=== PATIENT | female | born 1955 | race Hispanic/Latino ===

== ENCOUNTER 2018-06-20 09:21 | Inpatient (IN) | payer SELFPAY ==
[2018-06-20] MEDS ORDERED: ASPIRIN PO ONE (09:41)
--- NOTE | 2018-06-20 10:05 | Emergency Department Report ---
ED Chest Pain HPI - General Chief Complaint: Chest Pain Stated Complaint: CHEST PAIN Time Seen by Provider: 06/20/18 09:45 Source: patient, EMS Mode of arrival: Stretcher Limitations: No Limitations - History of Present Illness Initial Comments: 62-year-old female with multiple cardiac risk factors and intermittent chest pain for one week (I suspect it's even longer). She states that the chest pain occurs at night and with exertion and when she breathes in cold air. She called EMS and was found to be quite hypertensive. She received 3 nitroglycerin and chest pain resolved. She states she had a stress test in 1985 but no cardiac workup since. She has a brother who is status post CABG. She has hypertension and hyperlipidemia but she is not diabetic. MD Complaint: chest pain -: week(s) Onset: during rest, during exertion Pain Location: substernal Pain Radiation: LUE Severity: moderate, severe Severity scale (0 -10): 0 Quality: sharp (stated both pressure and sharp), pressure Consistency: now resolved Improves With: nitroglycerin Worsens With: nothing Other Symptoms: denies: cough, fever, syncope Treatments Prior to Arrival: nitroglycerin - Related Data Allergies Allergy/AdvReac Type Severity Reaction Status Date / Time No Known Allergies Allergy Verified 06/20/18 09:52 Heart Score - HEART Score History: Highly suspicious EKG: Non-specific Age: 45-65 Risk factors: > 3 risk factors or hx of atherosclerotic disease Troponin: 1-3x normal limit HEART Score: 7 - Critical Actions Critical Actions: >7 pts:50-65% risk of adverse cardiac event. Early invasive measures ED Review of Systems ROS: Stated complaint: CHEST PAIN Other details as noted in HPI Constitutional: denies: chills, fever Eyes: denies: eye pain, eye discharge, vision change ENT: denies: ear pain, throat pain Respiratory: denies: cough, shortness of breath, wheezing Cardiovascular: as per HPI, chest pain. denies: palpitations Endocrine: no symptoms reported Gastrointestinal: denies: abdominal pain, diarrhea Genitourinary: denies: urgency, dysuria, discharge Musculoskeletal: denies: back pain, joint swelling, arthralgia Skin: denies: rash, lesions Neurological: denies: headache, weakness, paresthesias Psychiatric: denies: anxiety, depression Hematological/Lymphatic: denies: easy bleeding, easy bruising ED Past Medical Hx - Past Medical History Hx Hypertension: Yes Additional medical history: hyperlipidemia - Social History Smoking Status: Former Smoker ED Physical Exam - General Limitations: No Limitations General appearance: alert, in no apparent distress - Head Head exam: Present: atraumatic, normocephalic - Eye Eye exam: Present: normal appearance. Absent: scleral icterus - ENT ENT exam: Present: mucous membranes moist - Neck Neck exam: Present: normal inspection. Absent: tenderness, meningismus - Respiratory Respiratory exam: Present: normal lung sounds bilaterally. Absent: respiratory distress - Cardiovascular Cardiovascular Exam: Present: regular rate, normal rhythm. Absent: systolic murmur, diastolic murmur, rubs, gallop - GI/Abdominal GI/Abdominal exam: Present: soft, normal bowel sounds. Absent: distended, tenderness, guarding, rebound, rigid - Extremities Exam Extremities exam: Present: normal inspection - Back Exam Back exam: Present: normal inspection - Neurological Exam Neurological exam: Present: alert, oriented X3, CN II-XII intact. Absent: motor sensory deficit - Psychiatric Psychiatric exam: Present: normal affect, normal mood - Skin Skin exam: Present: warm, dry, intact, normal color. Absent: rash ED Course Vital Signs 06/20/18 06/20/18 06/20/18 09:35 09:53 09:54 Temperature 98.2 F Pulse Rate 94 H Respiratory 22 13 13 Rate Blood Pressure 143/86 [Left] O2 Sat by Pulse 98 100 99 Oximetry AMILCAR score - Amilcar Score Age > 65: (0) No Aspirin use within the Past 7 Days: (0) No 3 or more CAD Risk Factors: (1) Yes 2 or more Angina events in past 24 hrs: (1) Yes Known CAD with more than 50% Stenosis: (0) No Elevated Cardiac Markers: (1) Yes ST Deviation Greater than 0.5mm: (0) No AMILCAR Score: 3 ED Medical Decision Making - Lab Data Result diagrams: 06/20/18 09:52 06/20/18 09:52 Laboratory Results - last 24 hr 06/20/18 06/20/18 06/20/18 09:52 09:52 09:52 WBC 10.2 RBC 4.48 Hgb 13.9 Hct 40.1 MCV 90 MCH 31 MCHC 35 H RDW 13.4 Plt Count 344 Lymph % (Auto) 20.2 [place] % (Auto) 5.3 Eos % (Auto) 1.3 Baso % (Auto) 0.4 Lymph # 2.1 [place] # 0.5 Eos # 0.1 Baso # 0.0 Seg Neutrophils % 72.8 H Seg Neutrophils # 7.4 PT 14.2 INR 1.04 APTT 26.2 D-Dimer 162.00 Sodium 140 Potassium 3.9 Chloride 105.8 Carbon Dioxide 22 Anion Gap 16 BUN 20 H Creatinine 0.5 L Estimated GFR > 60 BUN/Creatinine Ratio 40 Glucose 129 H Calcium 9.4 Magnesium Total Bilirubin Direct Bilirubin Indirect Bilirubin AST ALT Alkaline Phosphatase Troponin T 0.074 H NT-Pro-B Natriuret Pep Total Protein Albumin Albumin/Globulin Ratio Triglycerides 105 Cholesterol 224 H LDL Cholesterol Direct 158 H HDL Cholesterol 62 H Cholesterol/HDL Ratio 3.61 Urine Color Urine Turbidity Urine pH Ur Specific Velpen Urine Protein Urine Glucose (UA) Urine Ketones Urine Blood Urine Nitrite Urine Bilirubin Urine Urobilinogen Ur Leukocyte Esterase Urine WBC (Auto) Urine RBC (Auto) U Epithel Cells (Auto) Urine Bacteria (Auto) Hyaline Casts Urine Mucus 06/20/18 06/20/18 09:52 Unknown WBC RBC Hgb Hct MCV MCH MCHC RDW Plt Count Lymph % (Auto) [place] % (Auto) Eos % (Auto) Baso % (Auto) Lymph # [place] # Eos # Baso # Seg Neutrophils % Seg Neutrophils # PT INR APTT D-Dimer Sodium Potassium Chloride Carbon Dioxide Anion Gap BUN Creatinine Estimated GFR BUN/Creatinine Ratio Glucose Calcium Magnesium 1.90 Total Bilirubin 0.30 Direct Bilirubin < 0.2 Indirect Bilirubin 0.1 AST 21 ALT 28 Alkaline Phosphatase 108 Troponin T NT-Pro-B Natriuret Pep 279.6 Total Protein 6.7 Albumin 4.1 Albumin/Globulin Ratio 1.6 Triglycerides Cholesterol LDL Cholesterol Direct HDL Cholesterol Cholesterol/HDL Ratio Urine Color Yellow Urine Turbidity Clear Urine pH 6.0 Ur Specific [place] 1.012 Urine Protein 30 mg/dl Urine Glucose (UA) Neg Urine Ketones Neg Urine Blood Sm Urine Nitrite Neg Urine Bilirubin Neg Urine Urobilinogen < 2.0 Ur Leukocyte Esterase Sm Urine WBC (Auto) 3.0 Urine RBC (Auto) 4.0 U Epithel Cells (Auto) 6.0 Urine Bacteria (Auto) 1+ Hyaline Casts 6 Urine Mucus Few - EKG Data -: EKG Interpreted by Ms EKG shows normal: sinus rhythm, axis, intervals, QRS complexes, ST-T waves Rate: normal - EKG Data Interpretation: no acute changes - Radiology Data Radiology results: report reviewed - Medical Decision Making Patient has symptoms consistent with an acute coronary syndrome. She has slightly elevated troponin. Serial troponins and EKG. We'll discuss ant icoagulation with Dr. Stacy. Patient is admitted to the hospitalist service. Patient is stable consultation with cardiology will be pending. Critical care attestation.: If time is entered above; I have spent that time in minutes in the direct care of this critically ill patient, excluding procedure time. ED Disposition Clinical Impression: Acute coronary syndrome Disposition: DC-09 OP ADMIT IP TO THIS HOSP Is pt being admited?: Yes Does the pt Need Aspirin: Yes Condition: Stable Referrals: BRITTNEY PADILLA MD [Primary Care Provider] - 3-5 Days Time of Disposition: 11:44
[2018-06-20 10:11] LABS: Basophils % (Auto) 0.4 % (0.0-1.8); Eosinophils # (Auto) 0.1 K/mm3 (0.0-0.4); Eosinophils % (Auto) 1.3 % (0.0-4.3); Hematocrit 40.1 % (30.3-42.9); Hemoglobin 13.9 gm/dl (10.1-14.3); Lymphocytes # (Auto) 2.1 K/mm3 (1.2-5.4); Lymphocytes % (Auto) 20.2 % (13.4-35.0); Mean Corpuscular HGB Conc 35 % (30-34); Mean Corpuscular Volume 90 fl (79-97); Monocytes # (Auto) 0.5 K/mm3 (0.0-0.8); Monocytes % (Auto) 5.3 % (0.0-7.3); Platelet Count 344 K/mm3 (140-440); Red Blood Count 4.48 M/mm3 (3.65-5.03); Red Cell Distribution Width 13.4 % (13.2-15.2)
--- NOTE | 2018-06-20 10:15 | XRay Report ---
AP CHEST: HISTORY: chest pain AP view of the chest demonstrates a normal mediastinal and cardiac contour with clear lungs and normal bony and soft tissue structures. IMPRESSION: No acute cardiopulmonary process.
[2018-06-20 10:25] LABS: BUN/Creatinine Ratio 40; Blood Urea Nitrogen 20 mg/dL (7-17); Calcium 9.4 mg/dL (8.4-10.2); Hemolysis Index 23
[2018-06-20 10:29] LABS: Alanine Aminotransferase 28 units/L (7-56); Albumin 4.1 g/dL (3.9-5); INR 1.04 (0.87-1.13); Partial Thromboplastin Time 26.2 Sec. (24.2-36.6)
[2018-06-20 10:30] LABS: Bilirubin,Direct < 0.2 mg/dL (0-0.2)
[2018-06-20 10:44] LABS: Chol/HDL Ratio 3.61 %; HDL Cholesterol 62 mg/dL (40-59); LDL Cholesterol,Direct 158 mg/dL (50-130)
[2018-06-20 11:05] LABS: Bacteria,Urine 1+ /HPF (Negative); Bilirubin,Urine NEG (Negative); Blood,Urine SM (Negative); Color,Urine Yellow (Yellow); Hyaline Casts,Urine 6 /LPF; Mucus,Urine FEW /HPF; Urobilinogen,Urine < 2.0 mg/dL (<2.0)
[2018-06-20] MEDS ORDERED: NITRO-BID 2% TP ONE (11:45)
[2018-06-20] MEDS ORDERED: NITROSTAT SL ONE (11:52)
[2018-06-20] MEDS ORDERED: NITROSTAT SL PRN (11:55)
--- NOTE | 2018-06-20 12:07 | History and Physical Report ---
History of Present Illness Chief complaint: My chest hurts History of present illness: 62 YO Female with HTN, HLD presents to ED for evaluation. Pt states that she has experienced pain in her chest over the past 1 week. Pt states that he pain is intermittent and usually lasts for several minutes then resolves. Pt states that her pain has worsened and awoke her from sleep overnight. Pt states that pain is 10/10, substernal, radiates to her Left neck and arm, worsened with exertion, not relieved with rest. Pt acknowledges decreased exercise tolerance, Orthopnea/PND, lower extremity edema, as well as shortness of breath. EMS notified and upon arrival the patient was found to have Angina and a code STEMI was called. Pt transported to [facility] for further care. Pt seen and evaluated in ED and found to have NSTEMI/ACS. Pt initiated on heparin drip. Cardiology consulted in ED. Pt admitted to telemetry. Pt denies fever, chills, Palpitations, NVD, Trauma, BRBPR, Skin Rash, Productive Cough, or recent ill contacts. No previous inpatient admission. All listed medication reconciled at time of admission. Past History Past Medical History: hypertension, hyperlipidemia Past Surgical History: No surgical history Social history: , lives with family. denies: smoking, alcohol abuse, prescription drug abuse Family history: hypertension Medications and Allergies Allergies Allergy/AdvReac Type Severity Reaction Status Date / Time No Known Allergies Allergy Verified 06/20/18 09:52 Home Medications Medication Instructions Recorded Confirmed Last Taken Type Aspirin [Adult Aspirin] 81 mg PO QDAY 06/20/18 06/20/18 Unknown History Lansoprazole [Heartburn Treatment 15 mg PO QDAY 06/20/18 06/20/18 Unknown Histo ry 24 Hour] Active Meds: Active Medications Nitroglycerin (Nitrostat) 0.4 mg SL .Q5MIN PRN PRN Reason: Chest Pain Last Admin: 06/20/18 11:56 Dose: 0.4 mg Documented by: Review of Systems Constitutional: no weight loss, no weight gain, no fever, no chills Ears, nose, mouth and throat: no ear pain, no ear discharge, no tinnitis, no decreased hearing, no nose pain Breasts: no change in shape Cardiovascular: chest pain, orthopnea, shortness of breath, dyspnea on exertion, paroxysmal nocturnal dyspnea, high blood pressure, decreased exercise tolerance, no palpitations, no syncope Respiratory: no cough, no cough with sputum, no excessive sputum, no hemoptysis Gastrointestinal: no nausea, no vomiting, no diarrhea, no constipation Genitourinary Female: no pelvic pain, no flank pain, no menorrhagia, no dysuria, no urinary frequency Rectal: no pain, no incontinence, no bleeding Musculoskeletal: no neck stiffness, no neck pain, no arm numbness/tingling, no low back pain, no shooting leg pain, no leg numbness/tingling Integumentary: no rash, no pruritis, no redness, no sores, no wounds Neurological: no transient paralysis, no paralysis, no weakness, no parathesias, no numbness, no tingling Psychiatric: no anxiety, no memory loss, no change in sleep habits, no sleep disturbances, no insomnia, no hypersomnia Endocrine: no cold intolerance, no heat intolerance, no polyphagia, no excessive thirst, no polydipsia Hematologic/Lymphatic: no easy bruising, no easy bleeding, no lymphadenopathy, no lymphedema Allergic/Immunologic: no urticaria, no allergic rhinitis, no wheezing, no anaphylaxis, no angioedema Exam - Constitutional Vitals: Temp Pulse Resp BP Pulse Ox 98.2 F 104 H 15 163/107 100 06/20/18 09:53 06/20/18 11:59 06/20/18 11:59 06/20/18 11:59 06/20/18 11:59 General appearance: Present: mild distress - EENT Eyes: Present: PERRL ENT: hearing intact, clear oral mucosa - Neck Neck: Present: supple, normal ROM - Respiratory Respiratory effort: normal Respiratory: bilateral: CTA - Cardiovascular Heart Sounds: Present: S1 & S2. Absent: rub, click - Extremities Extremities: pulses symmetrical, No edema Peripheral Pulses: within normal limits - Abdominal General gastrointestinal: Present: soft, non-tender, non-distended, normal bowel sounds Female genitourinary: Present: normal - Integumentary Integumentary: Present: clear, warm, dry - Musculoskeletal Musculoskeletal: gait normal, strength equal bilaterally - Psychiatric Psychiatric: appropriate mood/affect, intact judgment & insight - Neurologic Neurologic: CNII-XII intact, moves all extremities Results - Labs CBC & Chem 7: 06/20/18 09:52 06/20/18 09:52 Labs: Abnormal lab results 06/20/18 06/20/18 Range/Units 09:52 09:52 MCHC 35 H (30-34) % Seg Neutrophils % 72.8 H (40.0-70.0) % BUN 20 H (7-17) mg/dL Creatinine 0.5 L (0.7-1.2) mg/dL Glucose 129 H (65-100) mg/dL Troponin T 0.074 H (0.00-0.029) ng/mL Cholesterol 224 H (50-199) mg/dL LDL Cholesterol Direct 158 H (50-130) mg/dL HDL Cholesterol 62 H (40-59) mg/dL Assessment and Plan - Patient Problems (1) NSTEMI (non-ST elevated myocardial infarction) Current Visit: Yes Status: Acute Plan to address problem: Cardiology consulted in ED, Pt admitted to telemetry, heparin drip protocol initiated in ED, as well as heparin bolus dosing, serial cardiac enzymes, ekg, telemetry, Echo, stress test, monitor bp q shift, pain control, morphine, supplemental oxygen, nitro, aspirin, statin therpay. (2) HTN (hypertension) Current Visit: Yes Status: Acute Qualifiers: Hypertension type: essential hypertension Qualified Code(s): I10 - Essential (primary) hypertension Plan to address problem: Monitor bp q shift, Amlodipine scheduled daily, IV hydralazine prn for systolic above 160. (3) HLD (hyperlipidemia) Current Visit: Yes Status: Acute Qualifiers: Hyperlipidemia type: mixed hyperlipidemia Qualified Code(s): E78.2 - Mixed hyperlipidemia Plan to address problem: Statin therapy, low cholesterol diet, lipid panel, (4) Diastolic CHF Current Visit: Yes Status: Suspected Qualifiers: Heart failure chronicity: acute Qualified Code(s): I50.31 - Acute diastolic (congestive) heart failure Plan to address problem: Admit to telemetry, Echo, cardiology consulted in ED, strict I/O, daily weight, monitor uop q shift, daily weight, BNP, D dimer, chest x ray, pulse oximetry, afterload reduction, monitor bp q shift. Echo ordered in ED. Results pending. (5) DVT prophylaxis Current Visit: Yes Status: Acute Plan to address problem: Heparin drip, SCD to BLE while in bed.
[2018-06-20] MEDS ORDERED: BABY ASPIRIN PO STA (12:11)
[2018-06-20] MEDS ORDERED: MORPHINE IV PRN (12:11)
[2018-06-20] MEDS ORDERED: ZOFRAN IV PRN (12:11)
[2018-06-20] MEDS ORDERED: SODIUM CHLORIDE FLUSH SYRINGE 10 ML IV PRN ×2 (12:11)
[2018-06-20] MEDS ORDERED: PROVENTIL IH PRN (12:11)
[2018-06-20] MEDS ORDERED: APRESOLINE IV PRN (12:16)
[2018-06-20] MEDS ORDERED: HEPARIN 10,000 UNITS/10 ML IV ONE (13:20)
[2018-06-20] MEDS ORDERED: HEPARIN 10,000 UNITS/10 ML ONE (13:31)
[2018-06-20] MEDS: HEPARIN/ 0.45% NACL-25,000 UNIT/500 ML 25,000 UNIT/500 ML BAG IV SCH (14:09)
--- NOTE | 2018-06-20 14:18 | Consultation ---
History of Present Illness Consult date: 06/20/18 Requesting physician: DAI PENA Consult reason: chest pain, elevated troponin History of present illness: The pt is a 62-year-old female with a past medical history of HTN, HLP, former tobacco use (quit smoking 12 years ago). She is previously unknown to our practice. She presented with complaints of chest pain for the past several weeks which worsened overnight. She states that for several weeks, she has been e xperiencing intermittent substernal stabbing chest pain which is worst at rest and improved by movement. Yesterday evening around 9PM, she developed constant stabbing chest pain which persisted overnight. This morning, she developed precordial chest pressure and decided to seek medical attention. The pain does radiate into her left arm. She also admits to dyspnea on exertion for the past several weeks. She denies any palpitations, n/v, diaphoresis, dizziness or syncope. She received 3 nitroglycerin and chest pain resolved. She states she had a stress test in 1985 but no cardiac workup since. She has a brother who is status post CABG. Past History Past Medical History: hypertension, hyperlipidemia Social history: smoking (former) Family history: CAD Medications and Allergies Allergies Allergy/AdvReac Type Severity Reaction Status Date / Time No Known Allergies Allergy Verified 06/20/18 09:52 Home Medications Medication Instructions Recorded Confirmed Last Taken Type Aspirin [Adult Aspirin] 81 mg PO QDAY 06/20/18 06/20/18 Unknown History Lansoprazole [Heartburn Treatment 15 mg PO QDAY 06/20/18 06/20/18 Unknown History 24 Hour] Active Meds: Active Medications Acetaminophen (Tylenol) 650 mg PO Q4H PRN PRN Reason: Pain MILD(1-3)/Fever >100.5/ORTIZ Albuterol (Proventil) 2.5 mg IH Q4HRT PRN PRN Reason: Shortness Of Breath Amlodipine Besylate (Norvasc) 5 mg PO QDAY LUIS MANUEL Hydralazine HCl (Apresoline) 10 mg IV Q8HR PRN PRN Reason: HTN >160 Heparin Sodium/Sodium Chloride (Heparin/ 0.45% Nacl-25,000 Unit/500 Ml) 25,000 unit in 500 mls @ 18 mls/hr IV TITR LUIS MANUEL; Protocol Last Admin: 06/20/18 14:09 Dose: 900 units/hr, 18 mls/hr Documented by: Morphine Sulfate (Morphine) 2 mg IV Q4H PRN PRN Reason: Pain, Moderate (4-6) Nitroglycerin (Nitrostat) 0.4 mg SL .Q5MIN PRN PRN Reason: Chest Pain Last Admin: 06/20/18 11:56 Dose: 0.4 mg Documented by: Ondansetron HCl (Zofran) 4 mg IV Q8H PRN PRN Reason: Nausea And Vomiting Sodium Chloride (Sodium Chloride Flush Syringe 10 Ml) 10 ml IV BID LUIS MANUEL Sodium Chloride (Sodium Chloride Flush Syringe 10 Ml) 10 ml IV PRN PRN PRN Reason: LINE FLUSH Sodium Chloride (Sodium Chloride Flush Syringe 10 Ml) 10 ml IV PRN PRN PRN Reason: LINE FLUSH Review of Systems Constitutional: no weight loss, no weight gain, no fever, no chills, no sweats Ears, nose, mouth and throat: no ear pain, no nose pain, no sinus pressure, no sinus pain Cardiovascular: chest pain, shortness of breath, dyspnea on exertion, high blood pressure, no orthopnea, no palpitations, no rapid/irregular heart beat, no edema, no syncope, no lightheadedness, no paroxysmal nocturnal dyspnea, no leg edema Respiratory: shortness of breath, dyspnea on exertion, no cough, no congestion, no wheezing, no pain on inspiration Gastrointestinal: no abdominal pain, no nausea, no vomiting, no diarrhea, no constipation, no change in bowel habits Genitourinary Female: no pelvic pain, no flank pain, no dysuria, no urinary frequency, no urgency Musculoskeletal: no neck stiffness, no neck pain, no shooting arm pain, no arm numbness/tingling, no low back pain, no shooting leg pain Integumentary: no rash, no pruritis, no redness, no sores, no wounds Neurological: no head injury, no paralysis, no weakness, no parathesias, no numbness, no tingling Psychiatric: no anxiety Endocrine: no cold intolerance, no heat intolerance Hematologic/Lymphatic: no easy bruising, no easy bleeding Allergic/Immunologic: no urticaria, no wheezing Physical Examination Vital Signs Resp Pulse Ox 22 98 06/20/18 09:35 06/20/18 09:35 General appearance: no acute distress HEENT: Positive: PERRL, Normocephaly, Mucus Membranes Moist Neck: Positive: neck supple, trachea midline Cardiac: Positive: Reg Rate and Rhythm, S1/S2 Lungs: Positive: clear to auscultation Neuro: Positive: Grossly Intact Abdomen: Positive: Soft. Negative: Tender Skin: Negative: Rash, Wound Musculoskeletal: No Pain Extremities: Absent: edema Results 06/20/18 09:52 06/20/18 09:52 Cardiac Enzymes 06/20/18 Range/Units 09:52 AST 21 (5-40) units/L Coagulation 06/20/18 Range/Units 09:52 PT 14.2 (12.2-14.9) Sec. INR 1.04 (0.87-1.13) APTT 26.2 (24.2-36.6) Sec. Lipids 06/20/18 Range/Units 09:52 Triglycerides 105 (2-149) mg/dL Cholesterol 224 H (50-199) mg/dL HDL Cholesterol 62 H (40-59) mg/dL Cholesterol/HDL Ratio 3.61 % CBC 06/20/18 Range/Units 09:52 WBC 10.2 (4.5-11.0) K/mm3 RBC 4.48 (3.65-5.03) M/mm3 Hgb 13.9 (10.1-14.3) gm/dl Hct 40.1 (30.3-42.9) % Plt Count 344 (140-440) K/mm3 Lymph # 2.1 (1.2-5.4) K/mm3 [place] # 0.5 (0.0-0.8) K/mm3 Eos # 0.1 (0.0-0.4) K/mm3 Baso # 0.0 (0.0-0.1) K/mm3 Comprehensive Metabolic Panel 06/20/18 06/20/18 Range/Units 09:52 09:52 Sodium 140 (137-145) mmol/L Potassium 3.9 (3.6-5.0) mmol/L Chloride 105.8 (98-107) mmol/L Carbon Dioxide 22 (22-30) mmol/L BUN 20 H (7-17) mg/dL Creatinine 0.5 L (0.7-1.2) mg/dL Glucose 129 H (65-100) mg/dL Calcium 9.4 (8.4-10.2) mg/dL Direct Bilirubin < 0.2 (0-0.2) mg/dL Indirect Bilirubin 0.1 mg/dL AST 21 (5-40) units/L ALT 28 (7-56) units/L Alkaline Phosphatase 108 (35-129) units/L Total Protein 6.7 (6.3-8.2) g/dL Albumin 4.1 (3.9-5) g/dL - Imaging and Cardiology Echo: pending Cardiac cath: pending EKG: report reviewed, image reviewed EKG interpretations - Telemetry EKG Rhythm: Sinus Rhythm - EKG Sinus rhythms and dysrhythmias: sinus rhythm Assessment and Plan CE elevation pattern appears c/w NSTEMI type I. Chest pain currently resolved, ECG with no acute ischemic changes. Agree with heparin gtt. Initiate ASA 325, lipitor, lopressor, nitrates. Obtain echo. Trend Rosy and repeat ECG in AM. Coronary angiography recommended. Indications, potential risks and benefits of LHC reviewed with pt and she is agreeable to proceed in AM. NPO after MN. The patent has been seen in conjunction with Dr. Chand who agrees with the assessment and plan of care. - Patient Problems (1) NSTEMI (non-ST elevated myocardial infarction) Current Visit: Yes Status: Acute (2) HTN (hypertension) Current Visit: Yes Status: Chronic Qualifiers: Hypertension type: essential hypertension Qualified Code(s): I10 - Essential (primary) hypertension (3) HLD (hyperlipidemia) Current Visit: Yes Status: Chronic Qualifiers: Hyperlipidemia type: mixed hyperlipidemia Qualified Code(s): E78.2 - Mixed hyperlipidemia
[2018-06-20] MEDS ORDERED: NACL 0.9% 500 ML 500 ML IV SCH (15:00)
[2018-06-20] MEDS ORDERED: LOPRESSOR ONE (15:16)
[2018-06-20] MEDS: LOPRESSOR PO SCH ×2 (15:22→22:47)
[2018-06-20] MEDS ORDERED: PLAVIX PO ONE (16:52)
[2018-06-20] MEDS: TYLENOL PO PRN (18:04)
[2018-06-20] MEDS: NITRO-BID 2% TP SCH (18:51)
[2018-06-20] MEDS: SODIUM CHLORIDE FLUSH SYRINGE 10 ML IV SCH (22:50)
[2018-06-21 05:50] LABS: Basophils # (Auto) 0.1 K/mm3 (0.0-0.1); Basophils % (Auto) 0.5 % (0.0-1.8); Eosinophils # (Auto) 0.2 K/mm3 (0.0-0.4); Eosinophils % (Auto) 1.8 % (0.0-4.3); Hematocrit 38.8 % (30.3-42.9); Hemoglobin 13.4 gm/dl (10.1-14.3); Lymphocytes # (Auto) 3.7 K/mm3 (1.2-5.4); Lymphocytes % (Auto) 37.9 % (13.4-35.0); Mean Corpuscular HGB Conc 35 % (30-34); Mean Corpuscular Volume 90 fl (79-97); Monocytes # (Auto) 0.7 K/mm3 (0.0-0.8); Monocytes % (Auto) 6.9 % (0.0-7.3); Platelet Count 319 K/mm3 (140-440); Red Cell Distribution Width 13.6 % (13.2-15.2)
[2018-06-21 05:55] LABS: INR 1.08 (0.87-1.13)
[2018-06-21 05:56] LABS: Creatine Kinase MB 9.8 ng/mL (0.0-4.0)
[2018-06-21 06:01] LABS: BUN/Creatinine Ratio 40; Blood Urea Nitrogen 20 mg/dL (7-17); Hemolysis Index 7
[2018-06-21] MEDS: NITRO-BID 2% TP SCH ×3 (06:40→17:36)
[2018-06-21] MEDS ORDERED: HALFPRIN EC PO SCH (10:00)
[2018-06-21] MEDS ORDERED: ASPIRIN PO SCH (10:00)
[2018-06-21] MEDS ORDERED: NON-FORMULARY (Lansoprazole [Heartburn Treatment 24 Hour] 15 MG) PO SCH (10:00)
[2018-06-21] MEDS ORDERED: NORVASC PO SCH (10:00)
[2018-06-21] MEDS ORDERED: PROTONIX PO SCH (10:00)
[2018-06-21] MEDS: LOPRESSOR PO SCH ×2 (10:50→22:56)
[2018-06-21] MEDS: TYLENOL PO PRN ×2 (10:50→17:46)
[2018-06-21] MEDS: SODIUM CHLORIDE FLUSH SYRINGE 10 ML IV SCH ×2 (10:52→22:59)
[2018-06-21] MEDS ORDERED: VERSED ONE (12:11)
[2018-06-21] MEDS ORDERED: HEPARIN/NS 5000 UNIT/500ML(CATH LAB) 500 ML IR ONE (12:11)
[2018-06-21] MEDS ORDERED: HEPARIN 10,000 UNITS/10 ML ONE (12:11)
[2018-06-21] MEDS ORDERED: CALAN ONE (12:11)
[2018-06-21] MEDS ORDERED: XYLOCAINE 2% INFILTRATI ONE (12:12)
--- NOTE | 2018-06-21 13:04 | Progress Note ---
Assessment and Plan Echo reviewed - EF 50-55%, no significant abnormalities. Cont present cardiac management. Proceed with C in AM. NPO after MN. The patent has been seen in conjunction with Dr. Chand who agrees with the assessment and plan of care. - Patient Problems (1) NSTEMI (non-ST elevated myocardial infarction) Current Visit: Yes Status: Acute (2) HTN (hypertension) Current Visit: Yes Status: Chronic Qualifiers: Hypertension type: essential hypertension Qualified Code(s): I10 - Essential (primary) hypertension (3) HLD (hyperlipidemia) Current Visit: Yes Status: Chronic Qualifiers: Hyperlipidemia type: mixed hyperlipidemia Qualified Code(s): E78.2 - Mixed hyperlipidemia Subjective Date of service: 06/21/18 Principal diagnosis: NSTEMI Interval history: pt resting in bed, no current cardiac complaints. states chest pain has resolved. heparin gtt infusing. Objective Last Vital Signs Temp 98.2 F 06/21/18 09:42 Pulse 79 06/21/18 09:42 Resp 20 06/21/18 09:42 BP 125/73 06/21/18 09:42 Pulse Ox 96 06/21/18 10:00 - Physical Examination General: No Apparent Distress HEENT: Positive: PERRL, Normocephaly, Mucus Membranes Moist Neck: Positive: neck supple, trachea midline Cardiac: Positive: Reg Rate and Rhythm, S1/S2 Lungs: Positive: Decreased Breath Sounds Neuro: Positive: Grossly Intact Abdomen: Positive: Soft. Negative: Tender Skin: Negative: Rash, Wound Musculoskeletal: No Pain Extremities: Absent: edema - Labs and Meds Cardiac Enzymes 06/21/18 Range/Units 04:50 CK-MB (CK-2) 9.8 H (0.0-4.0) ng/mL Coagulation 06/21/18 Range/Units 04:50 PT 14.7 (12.2-14.9) Sec. INR 1.08 (0.87-1.13) CBC 06/21/18 Range/Units 04:50 WBC 9.8 (4.5-11.0) K/mm3 RBC 4.30 (3.65-5.03) M/mm3 Hgb 13.4 (10.1-14.3) gm/dl Hct 38.8 (30.3-42.9) % Plt Count 319 (140-440) K/mm3 Lymph # 3.7 (1.2-5.4) K/mm3 [place] # 0.7 (0.0-0.8) K/mm3 Eos # 0.2 (0.0-0.4) K/mm3 Baso # 0.1 (0.0-0.1) K/mm3 Comprehensive Metabolic Panel 06/21/18 Range/Units 04:50 Sodium 140 (137-145) mmol/L Potassium 4.1 (3.6-5.0) mmol/L Chloride 106.0 (98-107) mmol/L Carbon Dioxide 24 (22-30) mmol/L BUN 20 H (7-17) mg/dL Creatinine 0.5 L (0.7-1.2) mg/dL Glucose 106 H (65-100) mg/dL Calcium 9.0 (8.4-10.2) mg/dL - Imaging and Cardiology EKG: report reviewed, image reviewed Echo: pending Cardiac cath: pending - Telemetry EKG Rhythm: Sinus Rhythm - EKG Sinus rhythms and dysrhythmias: sinus rhythm
[2018-06-21] MEDS: PLAVIX PO SCH (15:40)
[2018-06-21] MEDS: HEPARIN/ 0.45% NACL-25,000 UNIT/500 ML 25,000 UNIT/500 ML BAG IV SCH (17:42)
--- NOTE | 2018-06-21 17:45 | Progress Note ---
Assessment and Plan (1) NSTEMI (non-ST elevated myocardial infarction) Current Visit: Yes Status: Acute Plan to address problem: For cath in AM (2) HTN (hypertension) Current Visit: Yes Status: Acute Qualifiers: Hypertension type: essential hypertension Qualified Code(s): I10 - Essential (primary) hypertension Plan to address problem: Amlodipine scheduled daily, IV hydralazine prn for systolic above 160. (3) HLD (hyperlipidemia) Current Visit: Yes Status: Acute Qualifiers: Hyperlipidemia type: mixed hyperlipidemia Qualified Code(s): E78.2 - Mixed hyperlipidemia Plan to address problem: Statin therapy, low cholesterol diet, lipid panel, (4) Diastolic CHF Current Visit: Yes Status: Suspected Qualifiers: Heart failure chronicity: acute Qualified Code(s): I50.31 - Acute diastolic (congestive) heart failure Plan to address problem: Admit to telemetry, Echo, cardiology consulted in ED, strict I/O, daily weight, monitor uop q shift, daily weight, BNP, D dimer, chest x ray, pulse oximetry, afterload reduction, monitor bp q shift. Echo ordered in ED. Results pending. (5) DVT prophylaxis Current Visit: Yes Status: Acute Plan to address problem: Heparin drip, SCD to BLE while in bed. Subjective Date of service: 06/21/18 Principal diagnosis: NSTEMI Interval history: Doing well Objective - Constitutional Vitals: Vital Signs - 12hr 06/21/18 06/21/18 06/21/18 09:42 10:00 13:29 Temperature 98.2 F 97.4 F L Pulse Rate 79 72 Respiratory 20 18 Rate Blood Pressure 125/73 133/73 O2 Sat by Pulse 98 96 98 Oximetry General appearance: Present: no acute distress, well-nourished - EENT Eyes: PERRL, EOM intact ENT: hearing intact, clear oral mucosa Ears: bilateral: normal - Neck Neck: supple, normal ROM - Respiratory Respiratory effort: normal Respiratory: bilateral: CTA - Breasts Breasts: normal - Cardiovascular Heart rate: 78 Rhythm: regular Heart Sounds: Present: S1 & S2. Absent: gallop, rub Extremities: no ischemia, pulses intact, No edema, normal color, Full ROM - Gastrointestinal General gastrointestinal: Present: soft, non-tender, non-distended, normal bowel sounds Rectal Exam: deferred - Genitourinary Female genitourinary: normal - Integumentary Integumentary: clear, warm, dry - Musculoskeletal Musculoskeletal: 1, strength equal bilaterally - Neurologic Neurologic: CNII-XII intact, moves all extremities - Psychiatric Psychiatric: memory intact, appropriate mood/affect, intact judgment & insight - Allied health notes Allied health notes reviewed: nursing, case management - Labs CBC & Chem 7: 06/21/18 04:50 06/21/18 04:50 Labs: Abnormal lab results 06/20/18 06/20/18 06/21/18 Range/Units 17:01 21:33 04:50 MCHC 35 H (30-34) % Lymph % (Auto) 37.9 H (13.4-35.0) % Heparin Anti-Xa Level 0.78 H (0.3-0.7) U.I./ml BUN (7-17) mg/dL Creatinine (0.7-1.2) mg/dL Glucose (65-100) mg/dL CK-MB (CK-2) (0.0-4.0) ng/mL CK-MB (CK-2) Rel Index (0-4) Troponin T 0.103 H* (0.00-0.029) ng/mL 06/21/18 Range/Units 04:50 MCHC (30-34) % Lymph % (Auto) (13.4-35.0) % Heparin Anti-Xa Level (0.3-0.7) U.I./ml BUN 20 H (7-17) mg/dL Creatinine 0.5 L (0.7-1.2) mg/dL Glucose 106 H (65-100) mg/dL CK-MB (CK-2) 9.8 H (0.0-4.0) ng/mL CK-MB (CK-2) Rel Index 12.5 H (0-4) Troponin T 0.055 H D (0.00-0.029) ng/mL
[2018-06-21] MEDS: SUBLIMAZE ONE (22:58)
[2018-06-22 05:24] LABS: Hematocrit 39.1 % (30.3-42.9); Hemoglobin 13.2 gm/dl (10.1-14.3); Mean Corpuscular HGB Conc 34 % (30-34); Mean Corpuscular Volume 91 fl (79-97); Platelet Count 305 K/mm3 (140-440); Red Blood Count 4.28 M/mm3 (3.65-5.03); Red Cell Distribution Width 13.2 % (13.2-15.2)
[2018-06-22 05:37] LABS: INR 0.98 (0.87-1.13)
[2018-06-22 05:47] LABS: BUN/Creatinine Ratio 36; Blood Urea Nitrogen 18 mg/dL (7-17); Calcium 8.9 mg/dL (8.4-10.2); Hemolysis Index 23
[2018-06-22] MEDS: NITRO-BID 2% TP SCH (06:25)
[2018-06-22] MEDS ORDERED: ECOTRIN PO ONE ×2 (07:36→09:00)
[2018-06-22] MEDS ORDERED: NACL 0.9% 500 ML 500 ML ONE (07:36)
[2018-06-22] MEDS: PLAVIX PO SCH (07:41)
[2018-06-22] MEDS ORDERED: PLAVIX ONE (07:42)
[2018-06-22] MEDS ORDERED: NACL 0.9% 500 ML 500 ML IV SCH (08:00)
[2018-06-22] MEDS ORDERED: HEPARIN/NS 5000 UNIT/500ML(CATH LAB) 1,000 ML IR ONE (09:26)
[2018-06-22] MEDS ORDERED: NITROGLYCERIN SYRINGE 3 ML ONE (09:27)
[2018-06-22] MEDS ORDERED: SUBLIMAZE ONE ×2 (09:28→10:03)
[2018-06-22] MEDS: SUBLIMAZE ONE ×3 (09:49→10:02)
[2018-06-22] MEDS: XYLOCAINE 2% INFILTRATI ONE ×2 (09:49→09:54)
[2018-06-22] MEDS: VERSED ONE ×2 (09:49→09:56)
[2018-06-22] MEDS: CALAN ONE ×2 (09:49→09:55)
[2018-06-22] MEDS: HEPARIN 10,000 UNITS/10 ML ONE ×2 (09:50→09:55)
[2018-06-22] MEDS ORDERED: VERSED ONE (10:03)
[2018-06-22] MEDS ORDERED: TRIDIL DRIP 50MG/250ML 50 MG/250 ML BOTTLE ONE (10:06)
--- NOTE | 2018-06-22 10:25 | Progress Note ---
Assessment and Plan S/p [facility] this AM which showed severe left main disease. Pt to be tx to [facility] where Dr. Delarosa will accept for further management. The patent has been seen in conjunction with Dr. Chand who agrees with the assessment and plan of care. - Patient Problems (1) NSTEMI (non-ST elevated myocardial infarction) Current Visit: Yes Status: Acute (2) HTN (hypertension) Current Visit: Yes Status: Chronic Qualifiers: Hypertension type: essential hypertension Qualified Code(s): I10 - Essential (primary) hypertension (3) HLD (hyperlipidemia) Current Visit: Yes Status: Chronic Qualifiers: Hyperlipidemia type: mixed hyperlipidemia Qualified Code(s): E78.2 - Mixed hyperlipidemia (4) CAD (coronary artery disease) Current Visit: Yes Status: Chronic Subjective Date of service: 06/22/18 Principal diagnosis: NSTEMI Interval history: for [facility] today, no current cardiac complaints. had an episode of chest pain yesterday afternoon while ambulating to bathroom. Objective Last Vital Signs Temp 97.6 F 06/22/18 04:27 Pulse 76 06/22/18 04:27 Resp 18 06/22/18 04:27 BP 126/69 06/22/18 04:27 Pulse Ox 98 06/22/18 04:27 - Physical Examination General: No Apparent Distress HEENT: Positive: PERRL, Normocephaly, Mucus Membranes Moist Neck: Positive: neck supple, trachea midline Cardiac: Positive: Reg Rate and Rhythm, S1/S2 Lungs: Positive: clear to auscultation Neuro: Positive: Grossly Intact Abdomen: Positive: Soft. Negative: Tender Skin: Negative: Rash, Wound Musculoskeletal: No Pain Extremities: Absent: edema - Labs and Meds Coagulation 06/22/18 Range/Units 04:59 PT 13.6 (12.2-14.9) Sec. INR 0.98 (0.87-1.13) CBC 06/22/18 Range/Units 04:59 WBC 8.8 (4.5-11.0) K/mm3 RBC 4.28 (3.65-5.03) M/mm3 Hgb 13.2 (10.1-14.3) gm/dl Hct 39.1 (30.3-42.9) % Plt Count 305 (140-440) K/mm3 Comprehensive Metabolic Panel 06/22/18 Range/Units 04:59 Sodium 141 (137-145) mmol/L Potassium 4.3 (3.6-5.0) mmol/L Chloride 104.5 (98-107) mmol/L Carbon Dioxide 25 (22-30) mmol/L BUN 18 H (7-17) mg/dL Creatinine 0.5 L (0.7-1.2) mg/dL Glucose 109 H (65-100) mg/dL Calcium 8.9 (8.4-10.2) mg/dL - Imaging and Cardiology EKG: report reviewed, image reviewed Echo: report reviewed ( EF 50-55%, no significant abnormalities.) Cardiac cath: pending - Telemetry EKG Rhythm: Sinus Rhythm - EKG Sinus rhythms and dysrhythmias: sinus rhythm
[2018-06-22] MEDS ORDERED: MORPHINE ONE (11:00)
[2018-06-22] MEDS ORDERED: ZOFRAN ONE (11:15)
--- NOTE | 2018-06-22 12:04 | Cardiac Catherization Report ---
INDICATION FOR PROCEDURE: The patient is a 62-year-old white female presented with unstable angina and elevated troponin levels with elevated blood pressure. Because of non-STEMI, she was referred for cardiac catheterization. The patient and her are aware of the procedure, potential complications and alternatives of therapy available. DESCRIPTION OF PROCEDURE: The patient was brought to the catheterization laboratory in a fasting condition. The right wrist area and forearm were thoroughly cleansed with Betadine solution. Sterile drapes were applied. Local anesthesia was achieved in the right wrist area. The patient was evaluated for moderate sedation and was found to be a candidate for moderate sedation and received 1 mg of Versed and 100 mg of fentanyl. Subsequently, after applying sterile drapes, local anesthesia in the right wrist area, right radial artery puncture was made using 21-gauge arterial puncture needle. Subsequently, a [place] slender sheath was introduced. The patient received 3000 units of intravenous heparin in addition to 5 mg of intra-arterial verapamil. Subsequently, using multiple 5[place] multipurpose catheter, angiograms of the right coronary artery were obtained in multiple views followed by left ventriculogram done in ESCALONA projection. Subsequently, right coronary angiography was performed using right [place] JR4 catheter. At the end of the procedure, catheter and sheath were removed. The patient did have some pain in the right arm when manipulating the catheter. The patient was hypertensive throughout the procedure. She did not have any chest pain. The patient was noted to have severe left main disease, hence started on IV heparin and IV nitroglycerin in the catheterization laboratory. Following findings were noted. HEMODYNAMICS: 1. Opening aortic pressure 213/99. Left ventricular pressure 214/31. No gradient across the aortic valve. Estimated ejection fraction more than 65%. 2. Left ventriculogram done in ESCALONA projection showed normal size left ventricle with excellent contractility. Only limited amount of dye was injected. 3. Right coronary artery dominant vessel arises normally from right coronary cusp. There is hazy looking 50-60% distal RCA lesion was noted. This is focal lesion. Otherwise, rest of the RCA dominant vessel without significant disease. 4. Left coronary artery arises normally from left coronary cusp; however, there is heavy calcification in the area of the left main, proximal and mid LAD and proximal and mid circumflex artery. There is severe stenosis of the distal left main including the ostium of the LAD, which appears to be severely calcified and very narrow. Also, ostium of the circumflex artery appears to be involved. Otherwise, LAD curves around the apex with multiple diagonal branches and these vessels are bypassable, similarly circumflex artery is bypassable. Collaterals none. FINAL IMPRESSION: Severe coronary artery disease involving the left main, involving the ostial LAD and circumflex. Borderline mid RCA lesion noted. At this time, considering the above anatomy and nature of the vessels, it was felt that the patient would benefit from revascularization surgically. Discussed with Dr. Storm who agreed for transfer the patient. At the end of the procedure, the patient is stable without any chest pain and she is hypertensive, started on IV nitroglycerin and IV heparin. Discussed with the patient and her . They are agreeable with the plan. JOB# [id number] TASNEEM/ORESTES SARMIENTO
[2018-06-22 16:17] VITALS: BP 152/76
--- NOTE | 2018-06-23 08:11 | Progress Note ---
Subjective Date of service: 06/21/18 Principal diagnosis: NSTEMI Interval history: Doing well Objective - Labs CBC & Chem 7: 06/22/18 04:59 06/22/18 04:59
--- NOTE | 2018-06-23 08:22 | Discharge Summary ---
HOSPITAL COURSE: The patient was admitted for non-STEMI, hypertension, hyperlipidemia, diastolic congestive heart failure. The patient was started on IV heparin drip. The patient's troponins were elevated. First troponin was 0.116, second troponin was 0.103 and third troponin was 0.055. The patient was treated medically on 06/21/2018. The patient was taken to label designer on 06/22/2018. Left heart catheterization showed severe left main diseases. Because of the severe left main disease, the patient was transferred to [place] under Dr. Storm for possible coronary artery bypass graft. DISCHARGE DIAGNOSES: Non-ST elevation myocardial infarction, severe left anterior descending disease, hypertension, hyperlipidemia, coronary artery disease. JOB# [id number] ESTRADA/ORESTES
== END 2018-06-22 17:30 | disposition short-term general hospital (02) | DRG 280 ==
LOC: ED 09:21 → 4A 12:11
PROVIDERS: ADMIT Internal Medicine; ATTEND Internal Medicine
PROC: 4A023N7 Measurement of Cardiac Sampling and Pressure, Left Heart, Percutaneous Approach (ICD-10-PCS; principal; 2018-06-22)
PROC: B2111ZZ Fluoroscopy of Multiple Coronary Arteries using Low Osmolar Contrast (ICD-10-PCS; 2018-06-22)
PROC: B2151ZZ Fluoroscopy of Left Heart using Low Osmolar Contrast (ICD-10-PCS; 2018-06-22)
DX: I21.4 Non-ST elevation (NSTEMI) myocardial infarction (principal); I50.31 Acute diastolic (congestive) heart failure; E78.2 Mixed hyperlipidemia; I25.10 Atherosclerotic heart disease of native coronary artery without angina pectoris; I11.0 Hypertensive heart disease with heart failure; Z82.49 Family history of ischemic heart disease and other diseases of the circulatory system; Z79.82 Long term (current) use of aspirin; Z79.899 Other long term (current) drug therapy
CPT/HCPCS: 36415; 71045; 80048; 80061; 80076; 81001; 82550; 82553; 82962; 83735; 83880; 84484; 85025; 85027; 85379; 85520; 85610; 85730; 93005; 93010; 93306; 93458; 94760; 96365; 96366; 96367; 96374; 96375; G0378; A9270-GY; C1894; J1644; J2250; J2270; J2405; J3010; J7040; Q9967